=== PATIENT | male | born 1975 | race Caucasian/White ===

== ENCOUNTER 2016-08-17 15:49 | Emergency (ER) | payer OTHER ==
[~2016-08-17] VITALS: Wt 89.0 kg
[2016-08-17] MEDS ORDERED: ONDANSETRON 4 MG INJ IV STA (18:16)
[2016-08-17] MEDS ORDERED: KETOROLAC 60 MG INJ IM STA (18:16)
--- NOTE | 2016-08-17 18:16 | ERD ---
ER Documentation Chief Complaint Date/Time DATE: 08/17/16 TIME: 18:10 Chief Complaint LEFT SIDE ABD PAIN, NAUSEA, NO VOMITING HPI 40-year-old male who complains for left-sided abdominal pain for 2 weeks. Went to an urgent care last Wednesday and was prescribed with ciprofloxacin and dicyclomine. Stated that his pain got worse. Also reports that he is not able to stay still or lie flat because this increases pain. Feels nauseous but no vomiting. Denies headache, loss of consciousness, dizziness, blurry vision, changes in vision, photophobia, facial pain, ear pain, throat pain, difficulty swallowing, neck pain, shoulder pain, chest pain, cough, hemoptysis, loss of appetite, nausea, hematochezia, diarrhea, constipation, bladder and bowel incontinences, extremity weakness, extremity tenderness, numbness or tingling sensation, difficulty walking, recent travel, recent exposure to illness, recent antibiotic use in the last 3 months, fever, chills. Allergy: Penicillin. PMH: Hypertension. Medications: Lisinopril. Atenolol. Dicyclomine. Ciprofloxacin. Surgery: Denies. Family history: Denies. Primary Social History: Denies. Social: Stated that he would at the [employer]. Denies smoking, use of alcohol, use of illegal drugs. ROS All systems reviewed and are negative except as per history of present illness. Medications Home Meds Active Scripts Ondansetron (Ondansetron Odt) 4 Mg Tab.rapdis, 4 MG PO Q6H Y for NAUSEA AND/OR VOMITING, #10 TAB Prov:JARVIS RUTHERFORD 08/17/16 Hydrocodone/Acetaminophen (Ingleside 10-325 Tablet) 1 Each Tablet, 1 TAB PO Q6H Y for PAIN, #20 TAB Prov:JARVIS RUTHERFORD 08/17/16 Reported Medications Omeprazole* (Omeprazole*) 40 Mg Capsule.dr, 40 MG PO QAM, #30 CAP 08/17/16 Ciprofloxacin Hcl* (Ciprofloxacin Hcl*) 500 Mg Tablet, 500 MG PO BID, #14 TAB 08/17/16 Dicyclomine Hcl* (Bentyl*) 10 Mg Capsule, 10 MG PO TID, CAP 08/17/16 Lisinopril* (Lisinopril*) 40 Mg Tablet, 20 MG PO DAILY, #30 TAB 08/17/16 Atenolol* (Atenolol*) 25 Mg Tablet, 25 MG PO DAILY, #30 TAB 08/17/16 Discontinued Scripts Ondansetron (Ondansetron Odt) 4 Mg Tab.rapdis, 4 MG PO Q6H Y for NAUSEA AND/OR VOMITING, #10 TAB Prov:JARVIS RUTHERFORD 08/17/16 Allergies Allergies: Coded Allergies: Penicillins (Unverified Allergy, Unknown, 08/17/16) Uncoded Allergies: PCN (Allergy, Unknown, [place], 08/17/16) Physical Exam Vitals Vital Signs Date Time Temp Pulse Resp B/P Pulse Ox O2 Delivery O2 Flow Rate FiO2 08/17/16 16:20 99.0 103 17 167/98 100 Physical Exam CONSTITUTIONAL: Well-appearing; well-nourished; in no apparent distress. HEAD: Normocephalic; atraumatic. EYES: Conjunctiva clear, sclera non-icteric, EOM intact. PERRL Ears: Hearing intact. EACs clear, TMs non-bulging, non-inflamed, translucent & mobile, ossicles normal appearance, No obstructions, no erythema, no discharges Nose: No obstructions. No polyps. No external lesions. Mucosa non-inflamed. No external lesions, septum and turbinates normal. No rhinorrhea. No discharges. Frontal sinus is non-tender to palpation. Maxillary sinus is non-tender to palpation. MOUTH: Moist mucous membranes, no lesion, no obstructions, no vesicles, no thrush, patent airway Throat: Uvula in midline. Right tonsil is +1 with no erythema, no exudate. Left tonsil is +1 with no erythema, no exudate. Tolerating secretions well. Good gag reflex. Patent airway. Neck: Supple, without lesions, bruits, or adenopathy. No mass. Thyroid non- enlarged and non-tender to palpation. CHEST: Symmetrical chest. Respirations even and not labored. No retractions noted. CARDIOVASCULAR: Normal S1, S2. RRR. No murmurs, gallops. RESPIRATORY: Normal chest excursion with respiration; breath sounds clear and equal bilaterally; no wheezes, rhonchi, or rales. Breathing even and unlabored. Speaking in clear, full, and complete sentences w/ ease. ABDOMEN: Normal bowel sounds normal. Soft, round, non-distended, non-guarding, no rebound, no organomegaly, no masses, no pulsating abdominal mass. Left lower abdominal tenderness. No hernia. No peritoneal signs. : Left CVA tenderness. BACK: Symmetrical shoulder. Spine is midline without deformity, tenderness. No evidence of trauma or deformity. PELVIS: Stable pelvis. No evidence of trauma or deformity. MUSCULOSKELETAL: Normal gait and station. No misalignment, asymmetry, crepitation, defects, tenderness, masses, effusions, decreased range of motion, instability, atrophy or abnormal strength or tone in the head, neck, spine, ribs , pelvis or extremities. No calf tenderness. NEUROVASCULAR: Distal pulses are present. Pedal pulse are present, equal, and normal. Capillary refills are < 2 seconds. NEUROLOGIC: Alert and oriented x4. Speaks full and clear sentences. Cranial Nerves II-XII normal. Sensation to pain, touch, and proprioception normal. Grossly unremarkable. No neurologic deficits. Romberg test is negative. PSYCHOLOGICAL: The patients mood and manner are appropriate. No hallucinations , delusions. Not SI. Not HI. Has the capacity to decide for self SKIN: Normal for age and ethnicity; warm; dry; good turgor; no apparent lesions or exudates. No rashes, hives, discoloration. Intact. Result Diagram: 08/17/16185408/17/[id number] Results 24 hrs Laboratory Tests Test 08/17/16 18:40 08/17/16 18:55 Urine Bacteria FEW Urine Bilirubin NEGATIVE Urine Clarity CLEAR Urine Color LT. YELLOW Urine Epithelial Cells FEW Urine Glucose NEGATIVE% Urine Hemoglobin 1+ Urine Ketones NEGATIVE Urine Leukocyte Esterase TRACE Urine Microscopic RBC 2-5/HPF Urine Microscopic WBC 5-10/HPF Urine Nitrite NEGATIVE Urine Specific [place] 1.010 Urine Total Protein NEGATIVE Urine Urobilinogen 0.2 E.U./dL Urine pH 6.0 Alanine Aminotransferase (ALT/SGPT) 31IU/L Albumin 4.3g/dl Albumin/Globulin Ratio 1.30 Alkaline Phosphatase 60IU/L Amylase Level 136U/L Anion Gap 19 Aspartate Amino Transf (AST/SGOT) 22IU/L Basophils # 0.010^3/ul Basophils % 0.4% Blood Urea Nitrogen 15mg/dl Calcium Level 9.4mg/dl Carbon Dioxide Level 25mmol/L Chloride Level 104mmol/L Creatinine 1.13mg/dl Direct Bilirubin 0.00mg/dl Eosinophils # 0.210^3/ul Eosinophils % 2.0% Globulin 3.30g/dl Glucose Level 99mg/dl Hematocrit 38.7% Hemoglobin 12.9g/dl Indirect Bilirubin 0.2mg/dl Lipase 80U/L Lymphocytes # 1.910^3/ul Lymphocytes % 23.0% Mean Corpuscular Hemoglobin 28.7pg Mean Corpuscular Hemoglobin Concent 33.3g/dl Mean Corpuscular Volume 86.0fl Mean Platelet Volume 11.8fl Monocytes # 0.610^3/ul Monocytes % 7.0% Neutrophils # 5.510^3/ul Neutrophils % 67.4% Nucleated Red Blood Cells # 0.010^3/ul Nucleated Red Blood Cells % 0.0/100WBC Platelet Count 08787^3/UL Potassium Level 4.0mmol/L Red Blood Count 4.5010^6/ul Red Cell Distribution Width 12.6% Sodium Level 144mmol/L Total Bilirubin 0.2mg/dl Total Protein 7.6g/dl White Blood Count 8.110^3/ul Current Medications Medications (Trade) Dose Ordered Sig/Lasha Route PRN Reason Start Time Stop Time Status Last Admin Dose Admin Ketorolac Tromethamine (Toradol) 60 mg ONCE STAT IM 08/17/16 18:16 08/17/16 18:49 DC Ondansetron HCl (Zofran Inj) 4 mg ONCE STAT IV 08/17/16 18:16 08/17/16 18:19 DC 08/17/16 18:54 Ketorolac Tromethamine (Toradol) 30 mg ONCE STAT IV 08/17/16 18:47 08/17/16 18:49 DC 08/17/16 18:55 IV Flush 10 ml 10 ml STK-MED ONCE .ROUTE 08/17/16 20:00 08/17/16 20:01 DC 08/17/16 20:13 Sodium Chloride (NS) 100 ml @ ud STK-MED ONCE .ROUTE 08/17/16 20:00 08/17/16 20:01 DC 08/17/16 20:13 Iohexol (Omnipaque 300mg/ ml) 150 ml STK-MED ONCE .ROUTE 08/17/16 20:00 08/17/16 20:01 DC 08/17/16 20:13 Procedures/MDM Examination: Please see physical examination. Disease process, medical treatment was explained to the patient and family member. They verbalized understanding and agreed with the diagnostic tests, medical treatment, and follow-up care. Radiology: Chest x-ray Impression: No acute cardiopulmonary disease. CT abdomen/pelvis with IV contrast. Impression: Severe chronic left hydronephrosis secondary to a UPJ obstruction. A cluster of obstructing stones is noted in the left renal collecting system. Normal appendix. Nonspecific 9 mm low attenuation lesion in the right hepatic lobe, possibly a cyst or hemangioma. This could further evaluated with ultrasound if clinically warranted. Blood works: Reviewed. Urinalysis: Reviewed. Treatment: IV insertion. Toradol IV. Zofran IV. Re-evaluation: Denies headache dizziness, neck pain, chest pain, back pain, abdominal pain, back pain. No nausea and vomiting. No signs of dehydration. No active bleeding. States that he feels much better at this time. Consultation: None. Differential diagnosis: Diverticulosis versus diverticulitis versus appendicitis versus pancreatitis versus cholecystitis versus kidney stone versus splenic rupture versus acute pyelonephritis Medical decision makin-year-old male who complains for left-sided abdominal pain for 2 weeks. Went to an urgent care last Wednesday and was prescribed with ciprofloxacin and dicyclomine. Stated that his pain got worse. Also reports that he is not able to stay still or lie flat because this increases pain. Feels nauseous but no vomiting. Patient's complaint, patient's history about his complaint, my physical findings, diagnostic test results are consistent with my final diagnosis of severe to chronic left hydronephrosis, cluster of obstructing stones. Case, patient's presentation, my physical findings, diagnostic test results are discussed with emergency room supervising physician, Dr. Judie Carrera who agreed with my medical decision making and suggested for me to call urologist. 20:57 I informed laboratory secretary to call and page to urology gas pumping station helper. confidential secretary page Dr. Roman, who is gas pumping station helper Urologist. 21:26 Dr. Brendan Roman called back. I discussed with him patient's case, patient's presentation, patient's history of his complaint, my physical findings , diagnostic test results. He agreed with my medical decision making. He also stated that patient does not need to be admitted at this time. He also stated that patient could be discharged with [place] for pain and follow-up with his own urologist in the next 24-[address] Brendan Roman was discussed with Dr. Judie Schwab. We both agreed with medical decision making and final diagnosis. We also both agreed that patient could be discharged and prescribed Ingleside for pain and follow -up with his own urologist in the next 24-48 hours. Medications prescribed are the following: [place]. Zofran. Patient and family member are made aware of the side effects and adverse reactions of the medications prescribed. Instructed on when to seek emergent and medical attention in case allergic/anaphylactic reactions or severe side effects and or adverse reactions to medications. Patient and family member verbalized understanding. Patient instructed Instructed to follow-up with his PCP in 24-48 hours. PCP to refer patient to urologist in the next 24-48 hours. Patient agreed with the plan of care. He also stated that he will make sure to see a urologist in the next 24-48 hours. Instructed to Call 911 for chest pain, shortness of breath. Advised to come back here in ED as soon as possible for severity of symptoms which includes but not limited to: any new symptoms; shortness of breath/difficulty of breathing; cardiovascular changes; severe gastrointestinal symptoms; signs and symptoms of bleeding and or infection; signs of compartment syndrome/neurovascular changes; neurological changes/deficits. Patient and family member verbalized understanding. Upon discharge, patient is alert and oriented x 4, speaks full and clear sentences, denies pain, has no neurological deficits, has no neurovascular deficits, difficulty of breathing. Breathing even and unlabored. Lung sounds are clear to auscultation. Not in distress. Appears comfortable. Ambulatory with steady gait. Appears satisfied with care provided here in ED. Departure Diagnosis: Primary Impression: Hydronephrosis Additional Impression: Kidney stones Condition: Stable Additional Instructions: Patient instructed Instructed to follow-up with his PCP in 24-48 hours. PCP to refer patient to urologist in the next 24-48 hours. Patient agreed with the plan of care. He also stated that he will make sure to see a urologist in the next 24-48 hours. Instructed to Call 911 for chest pain, shortness of breath. Advised to come back here in ED as soon as possible for severity of symptoms which includes but not limited to: any new symptoms; shortness of breath/difficulty of breathing; cardiovascular changes; severe gastrointestinal symptoms; signs and symptoms of bleeding and or infection; signs of compartment syndrome/neurovascular changes; neurological changes/deficits. Patient and family member verbalized understanding. JARVIS RUTHERFORD Aug 17, 2016 18:16
[2016-08-17] MEDS ORDERED: KETOROLAC 30 MG INJ IV STA (18:47)
--- NOTE | 2016-08-17 18:52 | RADRPT ---
PROCEDURE: Chest x-ray CLINICAL INDICATION: Left chest pain TECHNIQUE: Chest 2 views COMPARISON: None FINDINGS: The heart is normal in size. The pulmonary vessels are normal in caliber. The lungs are clear. Th e costophrenic angles are sharp. The visualized bony thorax is unremarkable. IMPRESSION: No acute cardiopulmonary disease. RPTAT: HH .Дмитрий Diehl MD, Date Time Electronically viewed and signed by .Дмитрий Diehl MD, on 08/17/2016 18:52 .W/
[2016-08-17 19:08] LABS: ADD UMIC YES; URINE BILIRUBIN (Dip) NEGATIVE (NEGATIVE); URINE BLOOD (Dip) 1+ (NEGATIVE); URINE COLOR LT. YELLOW (YELLOW); URINE GLUCOSE (Dip) NEGATIVE (NEGATIVE); URINE KETONES (Dip) NEGATIVE (NEGATIVE); URINE LEUKOCYTE ESTERASE (Dip) TRACE (NEGATIVE); URINE NITRITE (Dip) NEGATIVE (NEGATIVE); URINE TOTAL PROTEIN (Dip) NEGATIVE (NEGATIVE); URINE UROBILINOGEN (Dip) 0.2 E.U./dL (0.1-1.0)
[2016-08-17 19:09] LABS: ADD SCAN DIFF NO
[2016-08-17 19:11] LABS: BASOPHILS % 0.4 % (0.0-2.0); EOSINOPHILS # 0.2 10^3/ul (0.0-0.5); HEMATOCRIT 38.7 % (42.0-52.0); HEMOGLOBIN 12.9 g/dl (14.0-18.0); LYMPHOCYTES # 1.9 10^3/ul (0.8-2.9); MEAN CORPUSCULAR HEMOGLOBIN 28.7 pg (29.0-33.0); MEAN CORPUSCULAR HGB CONC 33.3 g/dl (32.0-37.0); MEAN PLATELET VOLUME 11.8 fl (7.4-10.4); MONOCYTE # 0.6 10^3/ul (0.3-0.9); NEUTROPHIL # 5.5 10^3/ul (1.6-7.5); NEUTROPHILS % 67.4 % (39.0-77.0); PLATELET COUNT 237 10^3/UL (140-415); RED CELL DISTRIBUTION WIDTH 12.6 % (11.5-14.5); WHITE BLOOD COUNT 8.1 10^3/ul (4.8-10.8)
[2016-08-17 19:21] LABS: ALBUMIN 4.3 g/dl (3.3-4.9)
[2016-08-17 19:24] LABS: ALBUMIN/GLOBULIN RATIO 1.3; BILIRUBIN,INDIRECT 0.2 mg/dl (0-1.1); BILIRUBIN,TOTAL 0.2 mg/dl (0.2-1.3); CALCIUM 9.4 mg/dl (8.4-10.2); CREATININE 1.13 mg/dl (0.61-1.24); TOTAL PROTEIN 7.6 g/dl (6.1-8.1)
[2016-08-17 19:28] LABS: BACTERIA,URINE FEW
[2016-08-17] MEDS ORDERED: IOHEXOL 300MG/ML 150 ML BTL ONE (20:00)
[2016-08-17] MEDS ORDERED: SOD CHLORIDE 0.9% 100 ML ONE (20:00)
--- NOTE | 2016-08-17 20:50 | RADRPT ---
PROCEDURE: CT Abdomen and Pelvis with contrast. CLINICAL INDICATION: Abdominal pain. TECHNIQUE: A CT scan of the abdomen and pelvis was performed with intravenous contrast. The patie nt was scanned following the uncomplicated intravenous administration of 90 cc of Omnipaque-300. Co petra and sagittal reformatted images were obtained from the axial source images. Images were review ed on a high-resolution PACS workstation. CTDIvol: 12.60 mGy. DLP: 745.22 mGy-cm. One or more of the following dose reduction techniques were used: - Automated exposure control. - Adjustment of the mA and/or kV according to patient size. - Use of iterative reconstruction technique. COMPARISON: None. FINDINGS: There is minimal bibasilar atelectasis. The superiormost hepatic dome is not imaged. There is a 9 mm low-attenuation lesion in the right he patic lobe, nonspecific. The gallbladder is normal in appearance. The common bile duct is not dilate d. The spleen is not enlarged. No pancreatic lesion is identified and there is no pancreatic ductal dilatation. The adrenal glands are unremarkable. There is severe left hydronephrosis secondary to a UPJ obstruction. Filling of the left renal jane x is noted. There is a cluster nonobstructing stones in the left renal collecting system. There is no perinephric fat stranding. No hydronephrosis is seen. The small and large bowel are normal in caliber. There is no bowel wall thickening. The appendix is normal. The urinary bladder is unremarkable. The pelvic organs are within normal limits. No lymphadenopathy is identified. There is no ascites. No pneumoperitoneum is seen. There are no art erial calcifications. No suspicious osseous lesion is idenitified. IMPRESSION: 1. Severe chronic left hydronephrosis secondary to a UPJ obstruction. A cluster of obstructing sto genaro is noted in the left renal collecting system. 2. Normal appendix. 3. Nonspecific 9 mm low-attenuation lesion in the right hepatic lobe, possibly a cyst or hemangioma . This could further evaluated with ultrasound if clinically warranted. RPTAT: HTAR .Richard Castillo MD, MD Date Time Electronically viewed and signed by .Richard Castillo MD, MD on 08/17/2016 20:50 .R/
[2016-08-17] MEDS ORDERED: HYDR-902 PO (21:34)
[2016-08-17] MEDS ORDERED: ONDA4TAB14 PO ×2 (21:35→21:36)
[2016-08-17] MEDS ORDERED: ATEN-51 PO (21:38)
[2016-08-17] MEDS ORDERED: LISI40TA9 PO (21:38)
[2016-08-17] MEDS ORDERED: DICY10CA60 PO (21:39)
[2016-08-17] MEDS ORDERED: CIPR500T4 PO (21:39)
[2016-08-17] MEDS ORDERED: OMEP40CA6 PO (21:40)
[2016-08-17 22:03] VITALS: BP 143/96; PULSE 89; RESP 20
== END 2016-08-17 22:03 | disposition home or self-care (01) ==
LOC: FTE 15:49 → E/R 22:03
DX: N13.2 Hydronephrosis with renal and ureteral calculous obstruction (principal); I10 Essential (primary) hypertension
CPT/HCPCS: 36415; 71020; 74177; 80053; 81001; 82150; 83690; 85025; 87086; 96374; 96375; 99285; J1885; J2405; Q9967; 81003